=== PATIENT | female | born 1985 | race Caucasian/White ===

== ENCOUNTER 2019-02-07 14:10 | Inpatient (IN) | payer OTHER ==
[2019-02-07 19:06] VITALS: BMI 22.1
--- NOTE | 2019-02-07 20:37 | HP ---
"CIWA Score Nausea/Vomitin-Mild Nausea/No Vomiting Muscle Tremors: None Anxiety: 1-Mildly Anxious Agitation: 1-Slight > Activity Paroxysmal Sweats: No Perspiration Orientation: 0-Oriented Tacttile Disturbances: 0-None Auditory Disturbances: 0-None Visual Disturbances: 1-Very Mild Sensitivity Headache: 3-Moderate CIWA-Ar Total Score: 7 - Admission Criteria OASAS Guidelines: Admission for Medically Managed Detox: Requires at least one of the followin. CIWA greater than 12 2. Seizures within the past 24 hours 3. Delirium tremens within the past 24 hours 4. Hallucinations within the past 24 hours 5. Acute intervention needed for co occurring medical disorder 6. Acute intervention needed for co occurring psychiatric disorder 7. Severe withdrawal that cannot be handled at a lower level of care (continued vomiting, continued diarrhea, abnormal vital signs) requiring intravenous medication and/or fluids 8. Patient presents the following: CIWA greater than 12 Admission Criteria Met: Admission criteria met [facility] Chief Complaint: seeking detox for alcohol abuse with withdrawal sx's Allergies/Adverse Reactions: Allergies Allergy/AdvReac Type Severity Reaction Status Date / Time shrimp Allergy Severe throat Verified 02/07/19 18:52 swelling History of Present Illness: 33 Y.O. FEMALE WITH ALCOHOLISM O MAT HERE FOR DETOX. CLIENT IS REFERRED BY HER GUIDANCE COUNSELOR. THIS IS CLIENT FIRST ADMISSION HERE. REPORTS ALCOHOL INTAKE 3X A WEEK. LAST USE EARLIER TODAY. PRESENTS WITH C/O WITHDRAWAL SXS'S. CIWA 20. 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 LAST DETOX 2012. DENIES ANY SIGNNIFCANT PERIOD OF CLEAN TIME. SHE IS ON SBX MGMT 16 MG DAILY. LAST USE 3 DAYS AGO SHE HAS NOT FILLED HER LAST RX. SHE IS DISPENSED WEEKLY VERIFIED BY SUPERVISOR ESTERS AND EMULSIFIERS. SHE USED HEROIN AND STREET METH LAST 3 DAYS TO HELP WITH WITHDRAWAL SX'S. STATES WAS UNABLE TO FILL RX SHE WAS IN [place] . RETURNED FROM [place] ON THE WEEKEND BUT PHARMACY WAS CLOSED FOR THE WEEKEND. SHE ALSO USES COCAINE. DOMICILED, UNEMPLOYED- FAMILY SUPPORT, DENIES LEGALS. + HX/O DRUG OVERDOES, DENIES SEIZURE D/O, BLACK OUTS. Search Terms: jim dawson, 1985Search Date: 02/07/2019 08:27:21 PMStates Searched: [place] The Drug Utilization Report below displays the controlled substance prescriptions, if any, that were dispensed in the indicated state(s). The information displayed on this report is compiled from requests submitted to other states' PMPs, and accurately reflects the information as returned by them. Blank klein indicate data not provided by other state. This report was requested by: Simba Larkin | Reference #: [id number] Prescriptions Dispensed in [place] Others' Prescriptions Patient Name: JIM DAWSON Date: 1985 Address: [address] [place] [address] Sex: Female Rx Written Rx Dispensed Drug Strength Quantity Days Supply Prescriber Name 10/02/2017 10/02/2017 ZOLPIDEM TARTRATE 10 MG TABLET 30.0 30 Marilu FLORENTINO, OLGA 10/02/2017 11/10/2017 ZOLPIDEM TARTRATE 10 MG TABLET 30.0 30 Marilu FLORENTINO, OLGA 10/02/2017 10/31/2017 GABAPENTIN 300 MG CAPSULE 60.0 30 Marilu FLORENTINO JOSEPH Patient Name: JIM DAWSON Date: 1985 Address: [address] [place] [id number] Sex: Female Rx Written Rx Dispensed Drug Strength Quantity Days Supply Prescriber Name 11/27/2017 12/04/2017 GABAPENTIN 300 MG CAPSULE 30.0 30 Marilu FLORENTINO JOSEPH Patient Name: JIM DAWSON Date: 1985 Address: [address] [place] [id number] Sex: Female Rx Written Rx Dispensed Drug Strength Quantity Days Supply Prescriber Name 12/25/2017 12/25/2017 ZOLPIDEM TARTRATE 10 MG TABLET 30.0 30 Marilu FLORENTINO, OLGA 12/25/2017 01/16/2018 GABAPENTIN 300 MG CAPSULE 30.0 30 Marilu FLORENTINO JOSEPH Patient Name: STEVE DAWSON Date: 1985 Address: [address] [place], [place] [id number] Sex: Female Rx Written Rx Dispensed Drug Strength Quantity Days Supply Prescriber Name 01/29/2018 02/23/2018 ZOLPIDEM TARTRATE 10 MG TABLET 15.0 15 Marilu FLORENTINO, OLGA 01/29/2018 02/23/2018 GABAPENTIN 300 MG CAPSULE 15.0 15 Marilu FLORENTINO, OLGA 02/26/2018 03/07/2018 ZOLPIDEM TARTRATE 10 MG TABLET 30.0 30 Marilu FLORENTINO, OLGA 02/26/2018 03/07/2018 GABAPENTIN 300 MG CAPSULE 30.0 30 Marilu FLORENTINO, OLGA Patient Name: JIM DAWSON Date: 1985 Address: [address] [place] [address] Sex: Female Rx Written Rx Dispensed Drug Strength Quantity Days Supply Prescriber Name 05/26/2018 05/27/2018 GABAPENTIN 300 MG CAPSULE 30.0 30 Marilu FLORENTINO, OLGA 06/01/2018 06/01/2018 ZOLPIDEM TARTRATE 10 MG TABLET 30.0 30 Marilu FLORENTINO JOSEPH Patient Name: JIM DAWSON Date: 1985 Address: [address] [place] [address] Sex: Female Rx Written Rx Dispensed Drug Strength Quantity Days Supply Prescriber Name 10/01/2018 10/01/2018 ALPRAZOLAM 0.25 MG TABLET 14.0 7 WEBSTER, LATASHA 10/01/2018 10/01/2018 BUPRENORPHIN-NALOXON 8-2 MG SL 14.0 7 WEBSTER , LATASHA 10/07/2018 10/08/2018 BUPRENORPHIN-NALOXON 8-2 MG SL 14.0 7 WEBSTER , LATASHA 10/07/2018 10/08/2018 ALPRAZOLAM 0.25 MG TABLET 14.0 7 WEBSTER, LATASHA 10/15/2018 10/16/2018 BUPRENORPHIN-NALOXON 8-2 MG SL 14.0 7 WEBSTER , LATASHA 10/15/2018 10/16/2018 ALPRAZOLAM 1 MG TABLET 21.0 7 WEBSTER, LATASHA 10/22/2018 10/23/2018 BUPRENORPHIN-NALOXON 8-2 MG SL 14.0 7 WEBSTER , LATASHA 10/22/2018 10/23/2018 ALPRAZOLAM 1 MG TABLET 21.0 7 WEBSTER, LATASHA 11/12/2018 11/12/2018 ALPRAZOLAM 1 MG TABLET 21.0 7 WEBSTER, LATASHA 11/12/2018 11/12/2018 BUPRENORPHIN-NALOXON 8-2 MG SL 14.0 7 WEBSTER , ARAB 11/19/2018 11/19/2018 BUPRENORPHIN-NALOXON 8-2 MG SL 14.0 7 WEBSTER , ARAB 11/19/2018 11/19/2018 ALPRAZOLAM 1 MG TABLET 21.0 7 WEBSTER, ARAB 11/26/2018 11/26/2018 ALPRAZOLAM 1 MG TABLET 21.0 7 WEBSTER, ARAB 11/26/2018 11/26/2018 BUPRENORPHIN-NALOXON 8-2 MG SL 14.0 7 WEBSTER , ARAB 12/03/2018 12/03/2018 BUPRENORPHIN-NALOXON 8-2 MG SL 14.0 7 WEBSTER , ARAB 12/03/2018 12/03/2018 ALPRAZOLAM 1 MG TABLET 21.0 7 WEBSTER, ARAB 12/10/2018 12/10/2018 BUPRENORPHIN-NALOXON 8-2 MG SL 14.0 7 WEBSTER , ARAB 12/10/2018 12/10/2018 ALPRAZOLAM 1 MG TABLET 21.0 7 WEBSTER, ARAB 12/17/2018 12/17/2018 ALPRAZOLAM 1 MG TABLET 21.0 7 WEBSTER, ARAB 12/17/2018 12/17/2018 BUPRENORPHIN-NALOXON 8-2 MG SL 14.0 7 WEBSTER , ARAB 12/24/2018 12/28/2018 ALPRAZOLAM 1 MG TABLET 21.0 7 WEBSTER, ARAB 12/24/2018 12/28/2018 BUPRENORPHIN-NALOXON 8-2 MG SL 14.0 7 WEBSTER , ARAB 12/31/2018 01/04/2019 BUPRENORPHIN-NALOXON 8-2 MG SL 14.0 7 WEBSTER , ARAB 12/31/2018 01/04/2019 ALPRAZOLAM 1 MG TABLET 21.0 7 WEBSTER, ARAB 01/07/2019 01/11/2019 BUPRENORPHIN-NALOXON 8-2 MG SL 14.0 7 WEBSTER , ARAB 01/07/2019 01/11/2019 ALPRAZOLAM 1 MG TABLET 21.0 7 WEBSTER, ARAB 01/14/2019 01/17/2019 ALPRAZOLAM 1 MG TABLET 21.0 7 WEBSTER, ARAB 01/14/2019 01/17/2019 BUPRENORPHIN-NALOXON 8-2 MG SL 14.0 7 WEBSTER , ARAB 01/21/2019 01/24/2019 ALPRAZOLAM 1 MG TABLET 21.0 7 WEBSTER, LATASHA 01/21/2019 01/24/2019 BUPRENORPHIN-NALOXON 8-2 MG SL 14.0 7 WEBSTER , LATASHA 01/28/2019 01/30/2019 BUPRENORPHIN-NALOXON 8-2 MG SL 14.0 7 WEBSTER , LATASHA 01/28/2019 01/30/2019 ALPRAZOLAM 1 MG TABLET 21.[address] [facility], LATASHA Exam Limitations: No Limitations - Ebola screening Have you traveled outside of the country in the last 21 days: No (N) Have you had contact with anyone from an Ebola affected area: No Do you have a fever: No - Review of Systems Constitutional: Chills, Diaphoresis, Loss of Appetite, Malaise, Night Sweats, Changes in sleep EENT: reports: Dental Problems (MISSING TEETH), Throat Pain (SORE/ HORSENESS) Respiratory: reports: Shortness of Breath (HX/O ASTHMA) Cardiac: reports: No Symptoms Reported GI: reports: Nausea, Poor Appetite, Poor Fluid Intake, Vomiting : reports: No Symptoms Reported Musculoskeletal: reports: Neck Pain, Other (BUTTOCKS PAIN FROM PREVIOUS FALL. REPORTS WAS SEEN AND TREATED IN AN ER) Integumentary: reports: Sweating Neuro: reports: Headache, Tremors Endocrine: reports: No Symptoms Reported Hematology: reports: No Symptoms Reported Psychiatric: reports: Orientated x3, Agitated (IRRITABLE), Anxious, Depressed ( DENIES SI) Other Systems: Reviewed and Negative Patient History - Patient Medical History Hx Anemia: No Hx Asthma: Yes Hx Chronic Obstructive Pulmonary Disease (COPD): No Hx Cancer: No Hx Cardiac Disorders: No Hx Congestive Heart Failure: No Hx Hypertension: No Hx Hypercholesterolemia: No Hx Pacemaker: No HX Cerebrovascular Accident: No Hx Seizures: No Hx Dementia: No Hx Diabetes: No Hx Gastrointestinal Disorders: No Hx Liver Disease: No Hx Genitourinary Disorders: No Hx Sexually Transmitted Disorders: No Hx Renal Disease (ESRD): No Hx Thyroid Disease: No Hx Human Immunodeficiency Virus (HIV): No Hx Hepatitis C: No Hx Depression: Yes Hx Suicide Attempt: No Hx Bipolar Disorder: No Hx Schizophrenia: No Other Medical History: ANXIETY- ON RX ANAX, GABAPENTIN - Patient Surgical History Past Surgical History: Yes Hx Section: Yes (X3) Anesthesia Reaction: No - PPD History Previous Implant?: Yes Documented Results: Negative w/o proof Implanted On Prior R Admission?: No PPD to be Administered?: Yes - Reproductive History Patient is a Female of Child Bearing Age (11 -55 yrs old): Yes LMP comment: 01/31/2019 Patient : No (NEG UHCG) - Smoking Cessation Smoking history: Current every day smoker Have you smoked in the past 12 months: Yes Aproximately how many cigarettes per day: 3 Cigars Per Day: 0 Hx Chewing Tobacco Use: No Initiated information on smoking cessation: Yes 'Breaking Loose' booklet given: 02/07/19 - Substance & Tx. History Hx Alcohol Use: Yes Hx Substance Use: Yes Substance Use Type: Alcohol, Cocaine, Heroin, Prescribed (XANAX HAS NOT TAKEN IN 3 TO 4 DAYS) Hx Substance Use Treatment: Yes (DOES NOT RECALL) - Substances abused Alcohol Substance route: Oral Frequency: 3-6 times per week (3X) Amount used: 1 NIP Age of first use: 23 Date of last use: 02/07/19 Heroin Substance route: Inhalation Frequency: 1-3 times last 30 days (FIRST TIME USE ON 02/06/2019 IN THE PAST 3 WEEKS - 3 BAGS) Amount used: 3 bags Age of first use: 25 Date of last use: 02/06/19 Cocaine Substance route: Smoking Frequency: Daily Amount used: $150 Age of first use: 32 Date of last use: 02/06/19 Family Disease History - Family Disease History Family Disease History: Other: Mother (ALCOHOL ABUSE) Admission Physical Exam S - Vital Signs Vital Signs: Vital Signs - 24 hr 02/07/19 18:59 Temperature 97.0 F L Pulse Rate 68 Respiratory 18 Rate Blood Pressure 105/75 - Physical General Appearance: Yes: Irritable (DUIE TO WAITING TOO LONG), Anxious HEENTM: Yes: EOMI, Normocephalic, Normal Voice, ANG, Pharynx Normal, Muffled/ Hoarse Voice (HORSE), Other (MISSING TEETH THICK ORAL SECRETIONS) Respiratory: Yes: Chest Non-Tender, Lungs Clear, Normal Breath Sounds, No Respiratory Distress, No Accessory Muscle Use Neck: Yes: No masses,lesions,Nodules, Supple, Trachea in good position Breast: Yes: Breast Exam Deferred Cardiology: Yes: Regular Rhythm, Regular Rate, S1, S2 Abdominal: Yes: Non Tender, Soft, Increased Bowel Sounds Genitourinary: Yes: Within Normal Limits Back: Yes: Normal Inspection Musculoskeletal: Yes: full range of Motion, Gait Steady, Other (tenderness noted on palpation to left buttocks with some indurated tissue from previouos injury related to a fall. skin intaCT NO REDNESS.) Extremities: Yes: Normal Capillary Refill, Normal Range of Motion, Non-Tender Neurological: Yes: Fully Oriented, Alert, Motor Strength 5/5, Depressed Affect Integumentary: Yes: Dry, Warm Lymphatic: Yes: Within Normal Limits - Diagnostic (1) Alcohol abuse Current Visit: Yes Status: Acute (2) Opioid dependence on agonist therapy Current Visit: Yes Status: Acute (3) Cocaine abuse, uncomplicated Current Visit: Yes Status: Acute (4) At risk for dehydration due to poor fluid intake Current Visit: Yes Status: Acute (5) Depressed affect Current Visit: Yes Status: Acute (6) Asthma Current Visit: Yes Status: Acute (7) Nicotine dependence Current Visit: Yes Status: Acute (8) Substance induced mood disorder Current Visit: Yes Status: Acute Cleared for Admission [facility] - Detox or Rehab Detox Regimen/Protocol: Not Applicable Claeared for Rehab Admission: Yes Breathalyzer - Breathalyzer Breathalyzer: 0 Urine Drug Screen - Test Device Lot number: [id number] Expiration date: 11/19/20 - Control Is test valid?: Yes - Results Drug screen NEGATIVE: No Urine drug screen results: YAMIL-Cocaine, MOP-Opiates, MTD-Methadone, BUP-Suboxone Inpatient Rehab Admission - Rehab Decision to Admit Inpatient rehab admission?: Yes - Initial Determination Are CD services needed?: Yes Free of communicable disease: Yes Not in need of hospitalization: Yes - Rehab Admission Criteria Previous failed treatment: Yes Poor recovery environment: Yes Comorbidities: Yes Lacks judgement: No Patient is meeting Inpatient Rehab admission criteria:: Yes"
[2019-02-07] MEDS ORDERED: P-EPHED 60MG/TRIPROLIDI 2.5MG TABLET PO PRN (20:58)
[2019-02-07] MEDS ORDERED: MAGNESIUM CITRATE 300 ML BOTTLE PO PRN (20:58)
[2019-02-07] MEDS ORDERED: MENTHOL/PHENOL 1 EACH UD MM PRN (20:58)
[2019-02-07] MEDS ORDERED: MAGNESIUM HYDROX 2400MG/30ML ORAL SUSPENSION 30 ML CUP PO PRN (20:58)
[2019-02-07] MEDS ORDERED: LOPERAMIDE HCL 2 MG CAPSULE PO PRN (20:58)
[2019-02-07] MEDS ORDERED: guaiFENesin 200 MG/10 ML 10 ML UNIT-DOSE CUPS PO PRN (20:58)
[2019-02-07] MEDS: THIAMINE HCL 100 MG TABLET (FP) PO SCH (22:04)
[2019-02-07] MEDS: hydrOXYzine PAMOATE 50 MG CAPSULE (FP) PO PRN (22:04)
[2019-02-07] MEDS: MELATONIN 5 MG TABLETS PO PRN (22:04)
[2019-02-08] MEDS: IBUPROFEN 400 MG TABLET (FP) PO PRN ×2 (07:37→17:28)
[2019-02-08] MEDS: BUPRENORPHINE/NALOXONE 8 MG/2 MG FILM PACKET SL SCH ×2 (09:10→21:10)
[2019-02-08] MEDS: hydrOXYzine PAMOATE 50 MG CAPSULE (FP) PO PRN ×2 (09:10→14:19)
[2019-02-08] MEDS: PRENATAL VITAMINS W/ FOLIC ACID TABLET (FP) PO SCH (09:10)
[2019-02-08] MEDS: NICOTINE 14 MG/24 HOURS TOPICAL PATCH TD SCH (09:11)
--- NOTE | 2019-02-08 11:49 | CONSULT ---
[facility] Psychiatric Consult - Data Date of interview: 02/08/19 Admission source: [facility] Identifying data: Patient is a 33 year old single female, mother of two, unemployed, domiciled, and is financially supported by her boyfriend. This is patient's first admission to rehab at [facility]. Patient admitted 3E for cocaine dependence. Substance Abuse History: Smoking Cessation. Smoking history: Current every day smoker. Have you smoked in the past 12 months: Yes. Aproximately how many cigarettes per day: 3. Cigars Per Day: 0. Hx Chewing Tobacco Use: No. Initiated information on smoking cessation: Yes. 'Breaking Loose' booklet given : 02/07/19. - Substance & Tx. History. Hx Alcohol Use: Yes. Hx Substance Use : Yes. Substance Use Type: Alcohol, Cocaine, Heroin, Prescribed (XANAX HAS NOT TAKEN IN 3 TO 4 DAYS). Hx Substance Use Treatment: Yes (DOES NOT RECALL). - Substances abused. Alcohol. Substance route: Oral. Frequency: 3-6 times per week (3X). Amount used: 1 NIP. Age of first use: 23. Date of last use: . Heroin. Substance route: Inhalation. Frequency: 1-3 times last 30 days (FIRST TIME USE ON 02/06/2019 IN THE PAST 3 WEEKS - 3 BAGS). Amount used: 3 bags. Age of first use: 25. Date of last use: 02/06/19. Cocaine. Substance route: Smoking. Frequency: Daily. Amount used: $150. Age of first use: 32. Date of last use: 02/06/19 Medical History: Asthma Psychiatric History: Patient's first psychiatric contact was at 25 years of age at the [facility] methadone program located in [place]. States she was diagnosed with anxiety and prescribed klonopin. She discontinued treatment after three months. Then at 26 years of age she seeked psychiatric care at [facility] methadone program in [place] and was prescribed klonopin + gabapentin. Throughout the years she went back and fourth between [facility] and [facility] but is now receiving outpatient psychiatric care at [facility] and is prescribed gabapentin 300mg TID + Xanac 1mg TID + Suboxone. Patient denies h/o psychiatric hospitalization and suicide attempt. At present patient reports stable mood but is experiencing anxiety and difficulty sleeping. Physical/Sexual Abuse/Trauma History: denies. Mental Status Exam - Mental Status Exam Alert and Oriented to: Time, Place, Person Cognitive Function: Good Patient Appearance: Well Groomed Mood: Anxious Affect: Appropriate Patient Behavior: Cooperative Speech Pattern: Appropriate Voice Loudness: Normal Thought Process: Goal Oriented Thought Disorder: Not Present Hallucinations: Denies Suicidal Ideation: Denies Homicidal Ideation: Denies Insight/Judgement: Poor Sleep: Poorly Appetite: Fair Muscle strength/Tone: Normal Gait/Station: Normal Psychiatric Findings - Problem List ([place] 1, 2,3) (1) Alcohol dependence Current Visit: Yes Status: Chronic (2) Substance induced mood disorder Current Visit: Yes Status: Acute (3) Substance-induced anxiety disorder Current Visit: Yes Status: Acute (4) Substance-induced sleep disorder Current Visit: Yes Status: Acute (5) Opioid dependence Current Visit: Yes Status: Chronic - Initial Treatment Plan Initial Treatment Plan: Psychoeducation provided. Rehab in progress. Will order Gabapentin 300mg TID + Trazodone 50mg HS. Benefits and side effects discussed. Verbal consent given.
[2019-02-08 12:14] LABS: BASO % 0.5 % (0-2.0); EOS % 3.1 % (0-4.5); HEMATOCRIT 41.2 % (32.4-45.2); LYMPH % 24.5 % (8-40); MCH 27.3 pg (25.7-33.7); MCHC 33.9 g/dl (32.0-36.0); MEAN CELL VOLUME 80.3 fl (80-96); MEAN PLT VOLUME 9.9 fl (7.5-11.1); MONO % 5.7 % (3.8-10.2); NEUT % 66.2 % (42.8-82.8); PLATELET COUNT 221 K/MM3 (134-434); RBC 5.13 M/mm3 (3.60-5.2); RDW 15.2 % (11.6-15.6); WHITE BLOOD COUNT 5.6 K/mm3 (4.0-10.0)
[2019-02-08 12:22] LABS: ALBUMIN 3.9 g/dl (3.4-5.0); BILIRUBIN,TOTAL 0.8 mg/dL (0.2-1); CALCIUM 9.7 mg/dL (8.5-10.1); CREATININE 0.8 mg/dL (0.55-1.3); TOT PROT 7.3 g/dl (6.4-8.2)
[2019-02-08 12:34] LABS: PH,URINE 6.5 (5.0-8.0); URINE APPEARANCE CLEAR; URINE BILIRUBIN NEGATIVE (NEGATIVE); URINE COLOR YELLOW; URINE GLUCOSE (UA) NEGATIVE (NEGATIVE); URINE KETONE NEGATIVE (NEGATIVE); URINE LEUK ESTERASE NEGATIVE (NEGATIVE); URINE NITRITE NEGATIVE (NEGATIVE); URINE PROTEIN NEGATIVE (NEGATIVE)
[2019-02-08] MEDS ORDERED: ONDANSETRON *ODT* 4 MG TABLET SL PRN (13:29)
--- NOTE | 2019-02-08 13:36 | EKG ---
Test Reason : Blood Pressure : / mmHG Vent. Rate : 051 BPM Atrial Rate : 051 BPM P-R Int : 146 ms QRS Dur : 088 ms QT Int : 502 ms P-R-T Axes : -11 059 059 degrees QTc Int : 462 ms SINUS BRADYCARDIA OTHERWISE NORMAL ECG NO PREVIOUS ECGS AVAILABLE Confirmed by MD SARAH BETH, NANCY ([id number]) on 02/08/2019 1:36:25 PM Referred By: Leola Clinton Confirmed By:NANCY BURLESON MD
--- NOTE | 2019-02-08 14:04 | PN ---
[facility] Note: Pt c/o that she swallows her suboxone sl with water at home stating that she does not like the orange smell which causes her nausea. Spoke to Magi Roy, pharmacist and Dr. Oviedo on pt's concerns. No other form of suboxone is available to in hospital formulary. This typewriter tester explained to patient the proper administration protocols as well as the negative effects of doing that. Pt agreed to take suboxone as it is intended. Vital Signs - 24 hr 02/07/19 02/07/19 02/08/19 18:59 22:00 00:30 Temperature 97.0 F L 97.2 F L Pulse Rate 68 74 Respiratory 18 18 18 Rate Blood Pressure 105/75 134/70 02/08/19 02/08/19 03:30 06:41 Temperature 97.9 F Pulse Rate 82 Respiratory 18 16 Rate Blood Pressure 110/71 Laboratory Tests 02/07/19 02/08/19 02/08/19 20:16 09:00 09:00 WBC 5.6 RBC 5.13 Hgb 14.0 Hct 41.2 MCV 80.3 MCH 27.3 MCHC 33.9 RDW 15.2 Plt Count 221 MPV 9.9 Absolute Neuts (auto) 3.7 Neutrophils % 66.2 Lymphocytes % 24.5 Monocytes % 5.7 Eosinophils % 3.1 Basophils % 0.5 Nucleated RBC % 0 Sodium 143 Potassium 4.0 Chloride 108 H Carbon Dioxide 28 Anion Gap 7 L BUN 11.0 Creatinine 0.8 Est GFR (CKD-EPI)AfAm 113.86 Est GFR (CKD-EPI)NonAf 98.24 Random Glucose 59 L Calcium 9.7 Total Bilirubin 0.8 AST 16 ALT 16 Alkaline Phosphatase 106 Total Protein 7.3 Albumin 3.9 Urine Color Urine Appearance Urine pH Ur Specific [place] Urine Protein Urine Glucose (UA) Urine Ketones Urine Blood Urine Nitrite Urine Bilirubin Urine Urobilinogen Ur Leukocyte Esterase POC Urine HCG, Qual Negative RPR Titer 02/08/19 02/08/19 09:00 10:00 WBC RBC Hgb Hct MCV MCH MCHC RDW Plt Count MPV Absolute Neuts (auto) Neutrophils % Lymphocytes % Monocytes % Eosinophils % Basophils % Nucleated RBC % Sodium Potassium Chloride Carbon Dioxide Anion Gap BUN Creatinine Est GFR (CKD-EPI)AfAm Est GFR (CKD-EPI)NonAf Random Glucose Calcium Total Bilirubin AST ALT Alkaline Phosphatase Total Protein Albumin Urine Color Yellow Urine Appearance Clear Urine pH 6.5 Ur Specific [place] 1.018 Urine Protein Negative Urine Glucose (UA) Negative Urine Ketones Negative Urine Blood Negative Urine Nitrite Negative Urine Bilirubin Negative Urine Urobilinogen 1.0 Ur Leukocyte Esterase Negative POC Urine HCG, Qual RPR Titer Nonreactive Alert o x 3 NAD A/P suboxone MAT D/w pt as above and order zofran odt sl for nausea/vomiting prn. Patient agreed with poc to take suboxone sl and not swallow with water.
[2019-02-08] MEDS: GABAPENTIN 300 MG CAPSULE (FP) PO SCH ×2 (14:18→21:10)
[2019-02-08] MEDS: NICOTINE POLACRILEX 2 MG GUM BC PRN (16:42)
[2019-02-08] MEDS: traZODone HCL 50 MG TABLET (FP) PO SCH (21:10)
[2019-02-08] MEDS: THIAMINE HCL 100 MG TABLET (FP) PO SCH (21:10)
[2019-02-09] MEDS: GABAPENTIN 300 MG CAPSULE (FP) PO SCH ×3 (06:30→21:12)
[2019-02-09] MEDS: ALBUTEROL SO4 8 GM HFA INHALER IH PRN ×3 (06:31→21:14)
[2019-02-09] MEDS: IBUPROFEN 400 MG TABLET (FP) PO PRN ×2 (06:35→17:15)
[2019-02-09] MEDS: PRENATAL VITAMINS W/ FOLIC ACID TABLET (FP) PO SCH (09:46)
[2019-02-09] MEDS: NICOTINE 14 MG/24 HOURS TOPICAL PATCH TD SCH (09:46)
[2019-02-09] MEDS: BUPRENORPHINE/NALOXONE 8 MG/2 MG FILM PACKET SL SCH ×2 (09:47→21:13)
[2019-02-09] MEDS: NICOTINE POLACRILEX 2 MG GUM BC PRN (09:49)
[2019-02-09] MEDS: hydrOXYzine PAMOATE 50 MG CAPSULE (FP) PO PRN ×3 (12:41→21:12)
[2019-02-09] MEDS: THIAMINE HCL 100 MG TABLET (FP) PO SCH (21:12)
[2019-02-09] MEDS: traZODone HCL 50 MG TABLET (FP) PO SCH (21:12)
[2019-02-09] MEDS: MELATONIN 5 MG TABLETS PO PRN (21:13)
[2019-02-10] MEDS: hydrOXYzine PAMOATE 50 MG CAPSULE (FP) PO PRN ×4 (06:31→21:07)
[2019-02-10] MEDS: IBUPROFEN 400 MG TABLET (FP) PO PRN ×2 (06:31→13:36)
[2019-02-10] MEDS: ALBUTEROL SO4 8 GM HFA INHALER IH PRN ×2 (06:31→13:13)
[2019-02-10] MEDS: GABAPENTIN 300 MG CAPSULE (FP) PO SCH ×3 (06:31→21:07)
[2019-02-10] MEDS: NICOTINE 14 MG/24 HOURS TOPICAL PATCH TD SCH (10:02)
[2019-02-10] MEDS: BUPRENORPHINE/NALOXONE 8 MG/2 MG FILM PACKET SL SCH ×2 (10:02→21:08)
[2019-02-10] MEDS: PRENATAL VITAMINS W/ FOLIC ACID TABLET (FP) PO SCH (10:02)
[2019-02-10] MEDS: NICOTINE POLACRILEX 2 MG GUM BC PRN (10:06)
[2019-02-10] MEDS: METHYL SALICYLATE/MENTHOL OINT 30 GM TUBE TP SCH (10:48)
--- NOTE | 2019-02-10 11:42 | EKG ---
Test Reason : Blood Pressure : / mmHG Vent. Rate : 056 BPM Atrial Rate : 056 BPM P-R Int : 144 ms QRS Dur : 088 ms QT Int : 480 ms P-R-T Axes : -05 068 064 degrees QTc Int : 463 ms SINUS BRADYCARDIA WITH SINUS ARRHYTHMIA OTHERWISE NORMAL ECG WHEN COMPARED WITH ECG OF 07-FEB-2019 21:23, NO SIGNIFICANT CHANGE WAS FOUND Confirmed by SUNDEEP HARRINGTON, SHARON ([id number]) on 02/10/2019 11:42:32 AM Referred By: Leola Clinton Confirmed By:SHARON URBANO MD
[2019-02-10] MEDS: THIAMINE HCL 100 MG TABLET (FP) PO SCH (21:07)
[2019-02-10] MEDS: traZODone HCL 50 MG TABLET (FP) PO SCH (21:07)
[2019-02-10] MEDS: MELATONIN 5 MG TABLETS PO PRN (21:07)
[2019-02-11] MEDS: GABAPENTIN 300 MG CAPSULE (FP) PO SCH ×3 (06:25→21:36)
[2019-02-11] MEDS: IBUPROFEN 400 MG TABLET (FP) PO PRN ×3 (06:26→17:51)
[2019-02-11] MEDS: hydrOXYzine PAMOATE 50 MG CAPSULE (FP) PO PRN ×4 (06:27→22:06)
[2019-02-11] MEDS: ALBUTEROL SO4 8 GM HFA INHALER IH PRN (06:27)
[2019-02-11] MEDS ORDERED: PT OWN MED DRAWER 7, Y5N ONE (08:21)
[2019-02-11] MEDS: NICOTINE 14 MG/24 HOURS TOPICAL PATCH TD SCH (09:17)
[2019-02-11] MEDS: METHYL SALICYLATE/MENTHOL OINT 30 GM TUBE TP SCH (09:17)
[2019-02-11] MEDS: PRENATAL VITAMINS W/ FOLIC ACID TABLET (FP) PO SCH (09:17)
[2019-02-11] MEDS: BUPRENORPHINE/NALOXONE 8 MG/2 MG FILM PACKET SL SCH ×2 (09:20→21:34)
[2019-02-11] MEDS: NICOTINE POLACRILEX 2 MG GUM BC PRN (17:54)
[2019-02-11] MEDS: MELATONIN 5 MG TABLETS PO PRN (21:36)
[2019-02-11] MEDS: traZODone HCL 50 MG TABLET (FP) PO SCH (21:36)
[2019-02-11] MEDS: THIAMINE HCL 100 MG TABLET (FP) PO SCH (21:36)
[2019-02-12] MEDS: IBUPROFEN 400 MG TABLET (FP) PO PRN ×4 (00:13→18:44)
[2019-02-12] MEDS: GABAPENTIN 300 MG CAPSULE (FP) PO SCH ×3 (06:30→21:11)
[2019-02-12] MEDS: hydrOXYzine PAMOATE 50 MG CAPSULE (FP) PO PRN ×3 (06:30→21:14)
[2019-02-12] MEDS: NICOTINE 14 MG/24 HOURS TOPICAL PATCH TD SCH (09:30)
[2019-02-12] MEDS: METHYL SALICYLATE/MENTHOL OINT 30 GM TUBE TP SCH (09:30)
[2019-02-12] MEDS: PRENATAL VITAMINS W/ FOLIC ACID TABLET (FP) PO SCH (09:30)
[2019-02-12] MEDS: BUPRENORPHINE/NALOXONE 8 MG/2 MG FILM PACKET SL SCH ×2 (09:31→21:14)
[2019-02-12] MEDS: THIAMINE HCL 100 MG TABLET (FP) PO SCH (21:11)
[2019-02-12] MEDS: traZODone HCL 50 MG TABLET (FP) PO SCH (21:11)
[2019-02-12] MEDS: MELATONIN 5 MG TABLETS PO PRN (21:13)
[2019-02-13] MEDS: GABAPENTIN 300 MG CAPSULE (FP) PO SCH ×3 (06:46→21:30)
[2019-02-13] MEDS: hydrOXYzine PAMOATE 50 MG CAPSULE (FP) PO PRN ×3 (06:47→18:18)
[2019-02-13] MEDS: IBUPROFEN 400 MG TABLET (FP) PO PRN ×3 (06:47→21:32)
[2019-02-13] MEDS ORDERED: PT OWN MED DRAWER 7, Y5N ONE (08:42)
[2019-02-13] MEDS: PRENATAL VITAMINS W/ FOLIC ACID TABLET (FP) PO SCH (09:03)
[2019-02-13] MEDS: BUPRENORPHINE/NALOXONE 8 MG/2 MG FILM PACKET SL SCH ×2 (09:03→21:30)
[2019-02-13] MEDS: METHYL SALICYLATE/MENTHOL OINT 30 GM TUBE TP SCH (09:03)
[2019-02-13] MEDS: NICOTINE 14 MG/24 HOURS TOPICAL PATCH TD SCH (09:04)
[2019-02-13] MEDS: MAG HYDROX/AL HYDROX/SIMETH 30 ML UNIT-DOSE CUP PO PRN (11:46)
[2019-02-13] MEDS: NICOTINE POLACRILEX 2 MG GUM BC PRN (18:30)
[2019-02-13] MEDS: THIAMINE HCL 100 MG TABLET (FP) PO SCH (21:30)
[2019-02-13] MEDS: traZODone HCL 50 MG TABLET (FP) PO SCH (21:30)
[2019-02-13] MEDS: MELATONIN 5 MG TABLETS PO PRN (21:31)
[2019-02-14] MEDS: GABAPENTIN 300 MG CAPSULE (FP) PO SCH ×3 (06:44→21:49)
[2019-02-14] MEDS: hydrOXYzine PAMOATE 50 MG CAPSULE (FP) PO PRN ×3 (06:44→21:49)
[2019-02-14] MEDS: IBUPROFEN 400 MG TABLET (FP) PO PRN ×2 (06:44→17:11)
[2019-02-14] MEDS: NICOTINE 14 MG/24 HOURS TOPICAL PATCH TD SCH (10:09)
[2019-02-14] MEDS: PRENATAL VITAMINS W/ FOLIC ACID TABLET (FP) PO SCH (10:09)
[2019-02-14] MEDS: METHYL SALICYLATE/MENTHOL OINT 30 GM TUBE TP SCH (10:09)
[2019-02-14] MEDS: BUPRENORPHINE/NALOXONE 8 MG/2 MG FILM PACKET SL SCH ×2 (10:09→21:51)
[2019-02-14] MEDS: NICOTINE POLACRILEX 2 MG GUM BC PRN (10:09)
[2019-02-14] MEDS: THIAMINE HCL 100 MG TABLET (FP) PO SCH (21:49)
[2019-02-14] MEDS: traZODone HCL 50 MG TABLET (FP) PO SCH (21:49)
[2019-02-14] MEDS: MELATONIN 5 MG TABLETS PO PRN (21:52)
[2019-02-15] MEDS: GABAPENTIN 300 MG CAPSULE (FP) PO SCH ×3 (06:21→21:25)
[2019-02-15] MEDS: hydrOXYzine PAMOATE 50 MG CAPSULE (FP) PO PRN ×3 (06:23→21:24)
[2019-02-15] MEDS: IBUPROFEN 400 MG TABLET (FP) PO PRN ×2 (06:23→16:40)
[2019-02-15] MEDS ORDERED: PT OWN MED DRAWER 7, Y5N ONE (09:10)
[2019-02-15] MEDS: PRENATAL VITAMINS W/ FOLIC ACID TABLET (FP) PO SCH (09:57)
[2019-02-15] MEDS: BUPRENORPHINE/NALOXONE 8 MG/2 MG FILM PACKET SL SCH ×2 (09:58→21:24)
[2019-02-15] MEDS: NICOTINE 14 MG/24 HOURS TOPICAL PATCH TD SCH (09:58)
[2019-02-15] MEDS: METHYL SALICYLATE/MENTHOL OINT 30 GM TUBE TP SCH (09:59)
[2019-02-15] MEDS: COLLOIDAL OATMEAL 1 BAR EACH TP PRN (13:33)
--- NOTE | 2019-02-15 17:47 | PN ---
S Progress Note Note: Pt requested change of trazodone to seroquel for sleep. A consult was placed for on 02/11- pt was not seen. So will change to seroquel 100mg for sleep
[2019-02-15] MEDS: MAG HYDROX/AL HYDROX/SIMETH 30 ML UNIT-DOSE CUP PO PRN (21:25)
[2019-02-15] MEDS: THIAMINE HCL 100 MG TABLET (FP) PO SCH (21:25)
[2019-02-15] MEDS: MELATONIN 5 MG TABLETS PO PRN (21:25)
[2019-02-15] MEDS: QUEtiapine FUMARATE 100 MG TABLET (FP) PO SCH (21:27)
[2019-02-16] MEDS: hydrOXYzine PAMOATE 50 MG CAPSULE (FP) PO PRN ×3 (06:45→18:22)
[2019-02-16] MEDS: GABAPENTIN 300 MG CAPSULE (FP) PO SCH ×3 (06:45→21:18)
[2019-02-16] MEDS: IBUPROFEN 400 MG TABLET (FP) PO PRN ×2 (06:45→18:21)
[2019-02-16] MEDS: METHYL SALICYLATE/MENTHOL OINT 30 GM TUBE TP SCH (10:02)
[2019-02-16] MEDS: NICOTINE 14 MG/24 HOURS TOPICAL PATCH TD SCH (10:02)
[2019-02-16] MEDS: PRENATAL VITAMINS W/ FOLIC ACID TABLET (FP) PO SCH (10:02)
[2019-02-16] MEDS: BUPRENORPHINE/NALOXONE 8 MG/2 MG FILM PACKET SL SCH ×2 (10:03→21:18)
[2019-02-16] MEDS: MAG HYDROX/AL HYDROX/SIMETH 30 ML UNIT-DOSE CUP PO PRN (10:03)
[2019-02-16] MEDS: MELATONIN 5 MG TABLETS PO PRN (21:17)
[2019-02-16] MEDS: THIAMINE HCL 100 MG TABLET (FP) PO SCH (21:17)
[2019-02-16] MEDS: QUEtiapine FUMARATE 100 MG TABLET (FP) PO SCH (21:18)
[2019-02-17] MEDS: hydrOXYzine PAMOATE 50 MG CAPSULE (FP) PO PRN ×4 (06:13→23:18)
[2019-02-17] MEDS: GABAPENTIN 300 MG CAPSULE (FP) PO SCH ×3 (06:13→21:19)
[2019-02-17] MEDS: IBUPROFEN 400 MG TABLET (FP) PO PRN ×3 (06:13→21:19)
[2019-02-17] MEDS ORDERED: PT OWN MED DRAWER 7, Y5N ONE (08:23)
[2019-02-17] MEDS: NICOTINE 14 MG/24 HOURS TOPICAL PATCH TD SCH (09:49)
[2019-02-17] MEDS: BUPRENORPHINE/NALOXONE 8 MG/2 MG FILM PACKET SL SCH ×2 (09:49→21:19)
[2019-02-17] MEDS: PRENATAL VITAMINS W/ FOLIC ACID TABLET (FP) PO SCH (09:49)
[2019-02-17] MEDS: METHYL SALICYLATE/MENTHOL OINT 30 GM TUBE TP SCH (09:51)
[2019-02-17] MEDS: THIAMINE HCL 100 MG TABLET (FP) PO SCH (21:19)
[2019-02-17] MEDS: QUEtiapine FUMARATE 100 MG TABLET (FP) PO SCH (21:19)
[2019-02-17] MEDS: MELATONIN 5 MG TABLETS PO PRN (21:19)
[2019-02-18] MEDS: IBUPROFEN 400 MG TABLET (FP) PO PRN ×2 (05:46→11:58)
[2019-02-18] MEDS: GABAPENTIN 300 MG CAPSULE (FP) PO SCH ×3 (05:46→21:01)
[2019-02-18] MEDS: hydrOXYzine PAMOATE 50 MG CAPSULE (FP) PO PRN ×3 (05:46→17:31)
[2019-02-18] MEDS: NICOTINE 14 MG/24 HOURS TOPICAL PATCH TD SCH (09:10)
[2019-02-18] MEDS: METHYL SALICYLATE/MENTHOL OINT 30 GM TUBE TP SCH (09:10)
[2019-02-18] MEDS: PRENATAL VITAMINS W/ FOLIC ACID TABLET (FP) PO SCH (09:10)
[2019-02-18] MEDS: BUPRENORPHINE/NALOXONE 8 MG/2 MG FILM PACKET SL SCH ×2 (09:11→21:01)
[2019-02-18] MEDS: MAG HYDROX/AL HYDROX/SIMETH 30 ML UNIT-DOSE CUP PO PRN (12:23)
[2019-02-18] MEDS: THIAMINE HCL 100 MG TABLET (FP) PO SCH (21:01)
[2019-02-18] MEDS: QUEtiapine FUMARATE 100 MG TABLET (FP) PO SCH (21:01)
[2019-02-18] MEDS: MELATONIN 5 MG TABLETS PO PRN (21:02)
[2019-02-19] MEDS: hydrOXYzine PAMOATE 50 MG CAPSULE (FP) PO PRN ×3 (06:26→21:17)
[2019-02-19] MEDS: BUPRENORPHINE/NALOXONE 8 MG/2 MG FILM PACKET SL SCH ×2 (06:27→21:17)
[2019-02-19] MEDS: IBUPROFEN 400 MG TABLET (FP) PO PRN ×2 (06:27→12:51)
[2019-02-19] MEDS: GABAPENTIN 300 MG CAPSULE (FP) PO SCH ×3 (06:27→21:17)
[2019-02-19] MEDS: PRENATAL VITAMINS W/ FOLIC ACID TABLET (FP) PO SCH (09:59)
[2019-02-19] MEDS: NICOTINE 14 MG/24 HOURS TOPICAL PATCH TD SCH (09:59)
[2019-02-19] MEDS: METHYL SALICYLATE/MENTHOL OINT 30 GM TUBE TP SCH (10:00)
[2019-02-19] MEDS: MELATONIN 5 MG TABLETS PO PRN (21:17)
[2019-02-19] MEDS: QUEtiapine FUMARATE 100 MG TABLET (FP) PO SCH (21:17)
[2019-02-19] MEDS: THIAMINE HCL 100 MG TABLET (FP) PO SCH (21:17)
[2019-02-20] MEDS: IBUPROFEN 400 MG TABLET (FP) PO PRN ×3 (04:24→21:32)
[2019-02-20] MEDS: BUPRENORPHINE/NALOXONE 8 MG/2 MG FILM PACKET SL SCH ×2 (06:47→21:32)
[2019-02-20] MEDS: GABAPENTIN 300 MG CAPSULE (FP) PO SCH ×3 (06:47→21:32)
[2019-02-20] MEDS: hydrOXYzine PAMOATE 50 MG CAPSULE (FP) PO PRN ×3 (06:48→21:32)
[2019-02-20] MEDS: METHYL SALICYLATE/MENTHOL OINT 30 GM TUBE TP SCH (10:07)
[2019-02-20] MEDS: PRENATAL VITAMINS W/ FOLIC ACID TABLET (FP) PO SCH (10:07)
[2019-02-20] MEDS: NICOTINE 14 MG/24 HOURS TOPICAL PATCH TD SCH (10:07)
[2019-02-20] MEDS: ALBUTEROL SO4 8 GM HFA INHALER IH PRN (16:58)
[2019-02-20] MEDS: QUEtiapine FUMARATE 100 MG TABLET (FP) PO SCH (21:32)
[2019-02-20] MEDS: THIAMINE HCL 100 MG TABLET (FP) PO SCH (21:32)
[2019-02-20] MEDS: MELATONIN 5 MG TABLETS PO PRN (21:33)
[2019-02-21] MEDS: IBUPROFEN 400 MG TABLET (FP) PO PRN (06:32)
[2019-02-21] MEDS: GABAPENTIN 300 MG CAPSULE (FP) PO SCH ×3 (06:34→21:16)
[2019-02-21] MEDS: BUPRENORPHINE/NALOXONE 8 MG/2 MG FILM PACKET SL SCH ×2 (07:44→21:15)
[2019-02-21] MEDS: hydrOXYzine PAMOATE 50 MG CAPSULE (FP) PO PRN ×3 (07:44→21:16)
[2019-02-21] MEDS: COLLOIDAL OATMEAL 1 BAR EACH TP PRN (09:04)
[2019-02-21] MEDS: NICOTINE 14 MG/24 HOURS TOPICAL PATCH TD SCH (10:26)
[2019-02-21] MEDS: PRENATAL VITAMINS W/ FOLIC ACID TABLET (FP) PO SCH (10:26)
[2019-02-21] MEDS: METHYL SALICYLATE/MENTHOL OINT 30 GM TUBE TP SCH (10:27)
[2019-02-21] MEDS ORDERED: IBUPROFEN 400 MG TABLET (FP) PO PRN (10:28)
[2019-02-21] MEDS: IBUPROFEN 600 MG TABLET (FP) PO PRN ×2 (11:58→21:16)
[2019-02-21] MEDS: THIAMINE HCL 100 MG TABLET (FP) PO SCH (21:15)
[2019-02-21] MEDS: QUEtiapine FUMARATE 100 MG TABLET (FP) PO SCH (21:16)
[2019-02-21] MEDS: MELATONIN 5 MG TABLETS PO PRN (21:17)
[2019-02-22] MEDS: ACETAMINOPHEN 325 MG TABLET (FP) PO PRN (00:31)
[2019-02-22] MEDS: IBUPROFEN 600 MG TABLET (FP) PO PRN ×3 (06:25→17:40)
[2019-02-22] MEDS: hydrOXYzine PAMOATE 50 MG CAPSULE (FP) PO PRN ×2 (06:25→09:59)
[2019-02-22] MEDS: GABAPENTIN 300 MG CAPSULE (FP) PO SCH ×3 (06:26→21:07)
[2019-02-22] MEDS: BUPRENORPHINE/NALOXONE 8 MG/2 MG FILM PACKET SL SCH ×2 (07:52→21:07)
[2019-02-22] MEDS: NICOTINE 14 MG/24 HOURS TOPICAL PATCH TD SCH (09:58)
[2019-02-22] MEDS ORDERED: PT OWN MED DRAWER 7, Y5N ONE (10:00)
[2019-02-22] MEDS: METHYL SALICYLATE/MENTHOL OINT 30 GM TUBE TP SCH (10:00)
[2019-02-22] MEDS: PRENATAL VITAMINS W/ FOLIC ACID TABLET (FP) PO SCH (10:01)
[2019-02-22] MEDS: diphenhydrAMINE HCL 25 MG CAPSULE (FP) PO PRN ×2 (13:43→21:08)
[2019-02-22] MEDS: QUEtiapine FUMARATE 100 MG TABLET (FP) PO SCH (21:07)
[2019-02-22] MEDS: MELATONIN 5 MG TABLETS PO PRN (21:07)
[2019-02-22] MEDS: THIAMINE HCL 100 MG TABLET (FP) PO SCH (21:07)
[2019-02-23] MEDS: IBUPROFEN 600 MG TABLET (FP) PO PRN ×3 (03:27→21:09)
[2019-02-23] MEDS: GABAPENTIN 300 MG CAPSULE (FP) PO SCH ×3 (06:30→21:08)
[2019-02-23] MEDS: diphenhydrAMINE HCL 25 MG CAPSULE (FP) PO PRN ×3 (06:31→21:08)
[2019-02-23] MEDS: BUPRENORPHINE/NALOXONE 8 MG/2 MG FILM PACKET SL SCH ×2 (07:52→21:08)
[2019-02-23] MEDS ORDERED: PT OWN MED DRAWER 7, Y5N ONE (08:46)
[2019-02-23] MEDS: NICOTINE 14 MG/24 HOURS TOPICAL PATCH TD SCH (10:16)
[2019-02-23] MEDS: PRENATAL VITAMINS W/ FOLIC ACID TABLET (FP) PO SCH (10:16)
[2019-02-23] MEDS: METHYL SALICYLATE/MENTHOL OINT 30 GM TUBE TP SCH (10:17)
[2019-02-23] MEDS: ACETAMINOPHEN 325 MG TABLET (FP) PO PRN (11:32)
[2019-02-23] MEDS: MELATONIN 5 MG TABLETS PO PRN (21:07)
[2019-02-23] MEDS: THIAMINE HCL 100 MG TABLET (FP) PO SCH (21:07)
[2019-02-23] MEDS: QUEtiapine FUMARATE 100 MG TABLET (FP) PO SCH (21:08)
[2019-02-24] MEDS: GABAPENTIN 300 MG CAPSULE (FP) PO SCH (06:04)
[2019-02-24] MEDS: BUPRENORPHINE/NALOXONE 8 MG/2 MG FILM PACKET SL SCH ×2 (06:04→21:29)
[2019-02-24] MEDS: IBUPROFEN 600 MG TABLET (FP) PO PRN ×3 (06:05→21:27)
[2019-02-24] MEDS: diphenhydrAMINE HCL 25 MG CAPSULE (FP) PO PRN ×3 (06:06→21:27)
[2019-02-24] MEDS: PRENATAL VITAMINS W/ FOLIC ACID TABLET (FP) PO SCH (10:07)
[2019-02-24] MEDS: METHYL SALICYLATE/MENTHOL OINT 30 GM TUBE TP SCH (10:07)
[2019-02-24] MEDS: NICOTINE 14 MG/24 HOURS TOPICAL PATCH TD SCH (10:07)
[2019-02-24] MEDS: ACETAMINOPHEN 325 MG TABLET (FP) PO PRN (10:08)
[2019-02-24] MEDS: ALBUTEROL SO4 8 GM HFA INHALER IH PRN (13:00)
--- NOTE | 2019-02-24 13:08 | PN ---
Psychiatric Progress Note Vital Signs: Vital Signs Period Temp Pulse Resp BP Sys/Steve Pulse Ox Last 24 Hr 98.0 F 66 16-18 104/61 Date of Session: 02/24/19 Chief Complaint:: " I have anxiety." HPI: Patient admitted to for cocaine dependence. Patient reports worsening anxiety. ROS: Patient presents as mildly anxious. Patient is cooperative, coherent, alert + oriented X3. Current Medications: Active Medications Generic Name Dose Route Start Last Admin Trade Name Freq PRN Reason Stop Dose Admin Acetaminophen 650 mg 02/07/19 20:58 02/24/19 10:08 Tylenol - PO 650 mg Q4H PRN Administration FEVER Al Hydroxide/Mg Hydroxide 30 ml 02/07/19 20:58 02/18/19 12:23 Mylanta Oral Suspension - PO 30 ml Q6H PRN Administration DYSPEPSIA Albuterol Sulfate 2 puff 02/08/19 06:23 02/20/19 16:58 Ventolin Hfa Inhaler - IH 2 puff Q4H PRN Administration SHORT OF BREATH/WHEEZING Buprenorphine/Naloxone 1 each 02/18/19 22:00 02/24/19 06:04 Suboxone 8 Mg/2mg Sl Film - SL 1 each BID@0700,2200 SUNNY Administration Colloidal Oatmeal 1 applic 02/15/19 11:29 02/21/19 09:04 Aveeno Soap - TP 1 bar DAILY PRN Administration HYGEINE Diphenhydramine HCl 25 mg 02/22/19 13:31 02/24/19 06:06 Benadryl - PO 25 mg Q6H PRN Administration ANXIETY Eucalyptus/Menthol/Phenol/Sorbitol 1 each 02/07/19 20:58 Cepastat Lozenge - MM Q4H PRN SORE THROAT Gabapentin 400 mg 02/24/19 14:00 Neurontin - PO TID SUNNY Guaifenesin 10 ml 02/07/19 20:58 Robitussin - PO Q6H PRN COUGH Ibuprofen 600 mg 02/21/19 10:27 02/24/19 06:05 Motrin - PO 600 mg Q4H PRN Administration FEVER Loperamide HCl 4 mg 02/07/19 20:58 02/07/19 22:04 Imodium - PO 4 mg Q6H PRN Administration DIARRHEA Magnesium Citrate 300 ml 02/07/19 20:58 Citroma - PO Q48H PRN CONSTIPATION Magnesium Hydroxide 30 ml 02/07/19 20:58 Milk Of Magnesia - PO DAILY PRN CONSTIPATION Melatonin 10 mg 02/10/19 22:00 02/23/19 21:07 Melatonin PO 10 mg HS PRN Administration INSOMNIA Methyl Salicylate 1 applic 02/10/19 10:00 02/24/19 10:07 Pedro-Hassan - TP Not Given DAILY SUNNY Nicotine 14 mg 02/08/19 10:00 02/24/19 10:07 Nicoderm Patch - TD 14 mg DAILY SUNNY Administration Nicotine Polacrilex 2 mg 02/07/19 20:58 02/14/19 10:09 Nicorette Gum - BC 2 mg Q2H PRN Administration NICOTINE REPLACEMENT RX Ondansetron HCl 8 mg 02/08/19 13:29 Zofran Odt - SL Q8H PRN NAUSEA AND/OR VOMITING Multivit/Folic Acid/Iron 1 tab 02/08/19 10:00 02/24/19 10:07 Vitamins (Sjr) - PO 1 tab DAILY SUNNY Administration Pseudoephedrine/Triprolidine 1 combo 02/07/19 20:58 Actifed - PO TID PRN NASAL CONGESTION Quetiapine Fumarate 100 mg 02/15/19 22:00 02/23/19 21:08 Seroquel - PO 100 mg HS SUNNY Administration Thiamine HCl 100 mg 02/07/19 22:00 02/23/19 21:07 Vitamin B1 - PO 100 mg HS SUNNY Administration Medication(s) Change(s): Yes. Current Side Effect: No Lab tests ordered: No Lab tests reviewed: Yes Provider note:: Patient reports worsening anxiety secondary to her discharge on 03/03/19. States her mind is all over the place as she is unsure of her discharge plan. Patient advised to speak to her counselor concerning her discharge. Patient also educated on the importance of utilizing her coping skills to help manage her anxiety. Will d/c gabapentin 300mg TID and will order gabapentin 400mg TID. Patient satisifed and receptive to feeback. Benefits and side effects discussed. Verbal consent given. Total face to face time:: 25 Mental Status Exam - Mental Status Exam Alert and Oriented to: Time, Place, Person Cognitive Function: Good Patient Appearance: Well Groomed Mood: Anxious Affect: Mood Congruent Patient Behavior: Cooperative Speech Pattern: Appropriate Voice Loudness: Normal Thought Process: Goal Oriented Thought Disorder: Not Present Hallucinations: Denies Suicidal Ideation: Denies Homicidal Ideation: Denies Insight/Judgement: Poor Sleep: Fair Appetite: Fair Muscle strength/Tone: Normal Gait/Station: Normal Psychiatric Treatment Plan - Problem List (1) Alcohol dependence Current Visit: Yes (2) Substance induced mood disorder Current Visit: Yes (3) Substance-induced anxiety disorder Current Visit: Yes (4) Substance-induced sleep disorder Current Visit: Yes (5) Opioid dependence Current Visit: Yes
[2019-02-24] MEDS: GABAPENTIN 400 MG CAPSULE (FP) PO SCH ×2 (14:01→21:27)
[2019-02-24] MEDS: THIAMINE HCL 100 MG TABLET (FP) PO SCH (21:27)
[2019-02-24] MEDS: QUEtiapine FUMARATE 100 MG TABLET (FP) PO SCH (21:27)
[2019-02-24] MEDS: MELATONIN 5 MG TABLETS PO PRN (21:27)
[2019-02-25] MEDS: diphenhydrAMINE HCL 25 MG CAPSULE (FP) PO PRN ×2 (05:59→16:21)
[2019-02-25] MEDS: GABAPENTIN 400 MG CAPSULE (FP) PO SCH ×3 (05:59→21:31)
[2019-02-25] MEDS: IBUPROFEN 600 MG TABLET (FP) PO PRN ×4 (06:00→21:33)
[2019-02-25] MEDS: BUPRENORPHINE/NALOXONE 8 MG/2 MG FILM PACKET SL SCH ×2 (06:04→21:34)
[2019-02-25] MEDS: ACETAMINOPHEN 325 MG TABLET (FP) PO PRN (08:42)
[2019-02-25] MEDS ORDERED: PT OWN MED DRAWER 7, Y5N ONE (08:44)
[2019-02-25] MEDS: PRENATAL VITAMINS W/ FOLIC ACID TABLET (FP) PO SCH (10:18)
[2019-02-25] MEDS: METHYL SALICYLATE/MENTHOL OINT 30 GM TUBE TP SCH (10:18)
[2019-02-25] MEDS: NICOTINE 14 MG/24 HOURS TOPICAL PATCH TD SCH (10:18)
[2019-02-25] MEDS: BENZOCAINE 20 % GEL TUBE MM PRN (16:22)
[2019-02-25] MEDS: QUEtiapine FUMARATE 100 MG TABLET (FP) PO SCH (21:31)
[2019-02-25] MEDS: MELATONIN 5 MG TABLETS PO PRN (21:31)
[2019-02-25] MEDS: THIAMINE HCL 100 MG TABLET (FP) PO SCH (21:32)
[2019-02-26] MEDS: IBUPROFEN 600 MG TABLET (FP) PO PRN ×4 (06:27→21:34)
[2019-02-26] MEDS: BUPRENORPHINE/NALOXONE 8 MG/2 MG FILM PACKET SL SCH ×2 (06:28→21:36)
[2019-02-26] MEDS: GABAPENTIN 400 MG CAPSULE (FP) PO SCH ×3 (06:28→21:34)
[2019-02-26] MEDS: PRENATAL VITAMINS W/ FOLIC ACID TABLET (FP) PO SCH (10:40)
[2019-02-26] MEDS: diphenhydrAMINE HCL 25 MG CAPSULE (FP) PO PRN ×3 (10:41→23:29)
[2019-02-26] MEDS: NICOTINE 14 MG/24 HOURS TOPICAL PATCH TD SCH (10:42)
[2019-02-26] MEDS: METHYL SALICYLATE/MENTHOL OINT 30 GM TUBE TP SCH (10:42)
[2019-02-26] MEDS: QUEtiapine FUMARATE 100 MG TABLET (FP) PO SCH (21:34)
[2019-02-26] MEDS: MELATONIN 5 MG TABLETS PO PRN (21:34)
[2019-02-26] MEDS: THIAMINE HCL 100 MG TABLET (FP) PO SCH (21:34)
[2019-02-26] MEDS ORDERED: ACETAMINOPHEN 325 MG TABLET (FP) ONE (22:13)
[2019-02-27] MEDS: IBUPROFEN 600 MG TABLET (FP) PO PRN ×4 (04:01→21:20)
[2019-02-27] MEDS: ACETAMINOPHEN 325 MG TABLET (FP) PO PRN (05:47)
[2019-02-27] MEDS: GABAPENTIN 400 MG CAPSULE (FP) PO SCH ×3 (05:47→21:19)
[2019-02-27] MEDS: BUPRENORPHINE/NALOXONE 8 MG/2 MG FILM PACKET SL SCH ×2 (06:14→21:21)
[2019-02-27] MEDS: diphenhydrAMINE HCL 25 MG CAPSULE (FP) PO PRN ×3 (06:15→21:19)
[2019-02-27] MEDS ORDERED: PT OWN MED DRAWER 7, Y5N ONE ×2 (08:35→09:43)
[2019-02-27] MEDS: PRENATAL VITAMINS W/ FOLIC ACID TABLET (FP) PO SCH (09:44)
[2019-02-27] MEDS: NICOTINE 14 MG/24 HOURS TOPICAL PATCH TD SCH (09:44)
[2019-02-27] MEDS: BENZOCAINE 20 % GEL TUBE MM PRN (09:44)
[2019-02-27] MEDS: METHYL SALICYLATE/MENTHOL OINT 30 GM TUBE TP SCH (09:44)
[2019-02-27] MEDS: MAG HYDROX/AL HYDROX/SIMETH 30 ML UNIT-DOSE CUP PO PRN (09:45)
[2019-02-27] MEDS: QUEtiapine FUMARATE 100 MG TABLET (FP) PO SCH (21:19)
[2019-02-27] MEDS: MELATONIN 5 MG TABLETS PO PRN (21:19)
[2019-02-27] MEDS: THIAMINE HCL 100 MG TABLET (FP) PO SCH (21:41)
[2019-02-28] MEDS: IBUPROFEN 600 MG TABLET (FP) PO PRN ×2 (06:39→10:55)
[2019-02-28] MEDS: diphenhydrAMINE HCL 25 MG CAPSULE (FP) PO PRN ×3 (06:40→21:34)
[2019-02-28] MEDS: GABAPENTIN 400 MG CAPSULE (FP) PO SCH ×3 (06:40→21:34)
[2019-02-28] MEDS: BUPRENORPHINE/NALOXONE 8 MG/2 MG FILM PACKET SL SCH ×3 (06:43→21:36)
[2019-02-28] MEDS: PRENATAL VITAMINS W/ FOLIC ACID TABLET (FP) PO SCH (10:19)
[2019-02-28] MEDS: BENZOCAINE 20 % GEL TUBE MM PRN (10:19)
[2019-02-28] MEDS: METHYL SALICYLATE/MENTHOL OINT 30 GM TUBE TP SCH (10:19)
[2019-02-28] MEDS: NICOTINE 14 MG/24 HOURS TOPICAL PATCH TD SCH (10:20)
--- NOTE | 2019-02-28 14:15 | PN ---
[facility] Progress Note Note: Patient has toothache. States oragel helps very little. A/P oral mucosa pink and moist, + tooth decay and missing teeth, no inflammation or lesions noted. Will continue oragel and increase Motrin to 800mg every 8 hrs prn monitor clinically
[2019-02-28] MEDS: MAG HYDROX/AL HYDROX/SIMETH 30 ML UNIT-DOSE CUP PO PRN (15:05)
[2019-02-28] MEDS: IBUPROFEN 400 MG TABLET (FP) PO PRN (17:08)
[2019-02-28] MEDS: MELATONIN 5 MG TABLETS PO PRN (21:34)
[2019-02-28] MEDS: THIAMINE HCL 100 MG TABLET (FP) PO SCH (21:34)
[2019-02-28] MEDS: QUEtiapine FUMARATE 100 MG TABLET (FP) PO SCH (21:34)
[2019-03-01] MEDS: GABAPENTIN 400 MG CAPSULE (FP) PO SCH ×3 (06:52→21:24)
[2019-03-01] MEDS: IBUPROFEN 400 MG TABLET (FP) PO PRN ×3 (06:52→21:25)
[2019-03-01] MEDS: diphenhydrAMINE HCL 25 MG CAPSULE (FP) PO PRN ×3 (06:54→21:26)
[2019-03-01] MEDS: NICOTINE 14 MG/24 HOURS TOPICAL PATCH TD SCH (10:02)
[2019-03-01] MEDS: PRENATAL VITAMINS W/ FOLIC ACID TABLET (FP) PO SCH (10:02)
[2019-03-01] MEDS: BUPRENORPHINE/NALOXONE 8 MG/2 MG FILM PACKET SL SCH ×2 (10:02→21:28)
[2019-03-01] MEDS: METHYL SALICYLATE/MENTHOL OINT 30 GM TUBE TP SCH (10:04)
[2019-03-01] MEDS: ACETAMINOPHEN 325 MG TABLET (FP) PO PRN (10:25)
--- NOTE | 2019-03-01 13:16 | PN ---
[facility] Progress Note (SOAP) Subjective: c/o tooth ache with swelling and not getting better. Objective: 03/01/19 13:13 Vital Signs - 24 hr 03/01/19 03/01/19 03/01/19 00:30 03:30 07:20 Temperature 97.8 F Pulse Rate 83 Respiratory 17 18 18 Rate Blood Pressure 94/56 L oral exam: Left lower jaw with pain on palpation and swelling. left premolar decay; gum redness and swelling. Assessment: 03/01/19 13:14 Toothache Tooth decay/swelling Plan: Amoxicillin 500 mg po tid x7 days Anbesol oral gel apply as directed
[2019-03-01] MEDS: AMOXICILLIN 500 MG CAPSULE (FP) PO SCH ×2 (14:14→21:24)
[2019-03-01] MEDS: MELATONIN 5 MG TABLETS PO PRN (21:25)
[2019-03-01] MEDS: THIAMINE HCL 100 MG TABLET (FP) PO SCH (21:25)
[2019-03-01] MEDS: QUEtiapine FUMARATE 100 MG TABLET (FP) PO SCH (21:25)
[2019-03-02] MEDS: AMOXICILLIN 500 MG CAPSULE (FP) PO SCH ×3 (06:24→21:24)
[2019-03-02] MEDS: GABAPENTIN 400 MG CAPSULE (FP) PO SCH ×3 (06:24→21:24)
[2019-03-02] MEDS: IBUPROFEN 400 MG TABLET (FP) PO PRN ×3 (06:24→23:21)
[2019-03-02] MEDS: diphenhydrAMINE HCL 25 MG CAPSULE (FP) PO PRN ×3 (06:25→21:24)
[2019-03-02] MEDS: PRENATAL VITAMINS W/ FOLIC ACID TABLET (FP) PO SCH (10:16)
[2019-03-02] MEDS: ACETAMINOPHEN 325 MG TABLET (FP) PO PRN ×2 (10:16→21:25)
[2019-03-02] MEDS: NICOTINE 14 MG/24 HOURS TOPICAL PATCH TD SCH (10:17)
[2019-03-02] MEDS: BUPRENORPHINE/NALOXONE 8 MG/2 MG FILM PACKET SL SCH ×2 (10:18→21:29)
[2019-03-02] MEDS: METHYL SALICYLATE/MENTHOL OINT 30 GM TUBE TP SCH (10:18)
--- NOTE | 2019-03-02 10:19 | DS ---
[facility] Detox Discharge Summary Admission Date: 02/07/19 Discharge Date: 03/02/19 - Physical Exam Results Vital Signs: Vital Signs Temperature 97.7 F 03/02/19 07:15 Pulse Rate 83 03/02/19 07:15 Respiratory Rate 18 03/02/19 07:15 Blood Pressure 92/56 L 03/02/19 07:15 O2 Sat by Pulse Oximetry (%) - Treatment Hospital Course: Detox Protocol Followed - Medication Discharge Medications: Ambulatory Orders Albuterol Sulfate Inhaler - [Ventolin HFA Inhaler -] 2 puff PO Q4H 02/07/19 Alprazolam [Xanax] 1 mg PO TID 02/07/19 Gabapentin 300 mg PO TID 02/07/19 Suboxone 8 mg-2 mg Sl Tablets 8 mg PO BID 02/07/19 hydrOXYzine PAMOATE [Vistaril -] 25 mg PO HS 02/07/19 - AMA Did Patient Leave Against Medical Advice: No
--- NOTE | 2019-03-02 10:30 | DS ---
[facility] Rehab Discharge Summary - [facility] Rehab Discharge Summary Admission Date: 02/07/19 Discharge Date: 03/03/19 - History Present History: Alcohol dependence, Cocaine dependence, Opioid dependence, Sedative dependence Additional Comments: Pt is a 33 y/o female admitted to rehab with a hx of alcohol,cocaine,benzo and heroin dependence. Pt is currently on Suboxone MAT and has been referred to aftercare for follow up treatment. Pt has been reminded to follow up with dentist for management of chronic poor state of dental hygiene/health. Pertinent Past History: Asthma mood disorder - Discharge Physical Exam Vital Signs: Vital Signs Temperature 97.7 F 03/02/19 07:15 Pulse Rate 83 03/02/19 07:15 Respiratory Rate 18 03/02/19 07:15 Blood Pressure 92/56 L 03/02/19 07:15 O2 Sat by Pulse Oximetry (%) Alert o x 3 Nad Ambulates with steady gait Heent:normocephalic,eomi,rai,loss of teeth upper/lower jaws;decayed incissors/ pre-molar Cardiac:s1 s2, rrr Lungs:cta,jordan. Extremities/Skin:No edema,cyanosis;skin intact Pertinent Admission Physical Exam Findings: 1)Poor Dental Health 2)unremarkable lab results Laboratory Tests 02/07/19 02/08/19 02/08/19 20:16 08:46 08:46 WBC RBC Hgb Hct MCV MCH MCHC RDW Plt Count MPV Absolute Neuts (auto) Neutrophils % Lymphocytes % Monocytes % Eosinophils % Basophils % Nucleated RBC % Sodium Potassium Chloride Carbon Dioxide Anion Gap BUN Creatinine Est GFR (CKD-EPI)AfAm Est GFR (CKD-EPI)NonAf Random Glucose Calcium Total Bilirubin AST ALT Alkaline Phosphatase Total Protein Albumin Urine Color Urine Appearance Urine pH Ur Specific Gobler Urine Protein Urine Glucose (UA) Urine Ketones Urine Blood Urine Nitrite Urine Bilirubin Urine Urobilinogen Ur Leukocyte Esterase POC Urine HCG, Qual Negative RPR Titer Hep C Ab Diagnostic 0.2 TB (QFT) Incubation TB Test (QFT) Nil 0.05 TB Test (QFT) Mitogen >10.00 TB Test (QFT) Antigen 0.05 TB Test (QFT) Negative TB Positive Criteria 02/08/19 02/08/19 02/08/19 09:00 09:00 09:00 WBC 5.6 RBC 5.13 Hgb 14.0 Hct 41.2 MCV 80.3 MCH 27.3 MCHC 33.9 RDW 15.2 Plt Count 221 MPV 9.9 Absolute Neuts (auto) 3.7 Neutrophils % 66.2 Lymphocytes % 24.5 Monocytes % 5.7 Eosinophils % 3.1 Basophils % 0.5 Nucleated RBC % 0 Sodium 143 Potassium 4.0 Chloride 108 H Carbon Dioxide 28 Anion Gap 7 L BUN 11.0 Creatinine 0.8 Est GFR (CKD-EPI)AfAm 113.86 Est GFR (CKD-EPI)NonAf 98.24 Random Glucose 59 L Calcium 9.7 Total Bilirubin 0.8 AST 16 ALT 16 Alkaline Phosphatase 106 Total Protein 7.3 Albumin 3.9 Urine Color Urine Appearance Urine pH Ur Specific Gobler Urine Protein Urine Glucose (UA) Urine Ketones Urine Blood Urine Nitrite Urine Bilirubin Urine Urobilinogen Ur Leukocyte Esterase POC Urine HCG, Qual RPR Titer Nonreactive Hep C Ab Diagnostic TB (QFT) Incubation TB Test (QFT) Nil TB Test (QFT) Mitogen TB Test (QFT) Antigen TB Test (QFT) TB Positive Criteria 02/08/19 10:00 WBC RBC Hgb Hct MCV MCH MCHC RDW Plt Count MPV Absolute Neuts (auto) Neutrophils % Lymphocytes % Monocytes % Eosinophils % Basophils % Nucleated RBC % Sodium Potassium Chloride Carbon Dioxide Anion Gap BUN Creatinine Est GFR (CKD-EPI)AfAm Est GFR (CKD-EPI)NonAf Random Glucose Calcium Total Bilirubin AST ALT Alkaline Phosphatase Total Protein Albumin Urine Color Yellow Urine Appearance Clear Urine pH 6.5 Ur Specific Gobler 1.018 Urine Protein Negative Urine Glucose (UA) Negative Urine Ketones Negative Urine Blood Negative Urine Nitrite Negative Urine Bilirubin Negative Urine Urobilinogen 1.0 Ur Leukocyte Esterase Negative POC Urine HCG, Qual RPR Titer Hep C Ab Diagnostic TB (QFT) Incubation TB Test (QFT) Nil TB Test (QFT) Mitogen TB Test (QFT) Antigen TB Test (QFT) TB Positive Criteria - Treatment Discharge Condition: Discharge condition good Hospital Course: Rehabilitated safely and responded well. Accepted aftercare referral. - Medication Discharge Medications: Ambulatory Orders Albuterol Sulfate Inhaler - [Ventolin HFA Inhaler -] 2 puff PO Q4H 02/07/19 Alprazolam [Xanax] 1 mg PO TID 02/07/19 Gabapentin 300 mg PO TID 02/07/19 Suboxone 8 mg-2 mg Sl Tablets 8 mg PO BID 02/07/19 hydrOXYzine PAMOATE [Vistaril -] 25 mg PO HS 02/07/19 Amoxicillin - [Amoxicillin 500mg Capsule -] 500 mg PO TID #15 capsule 03/02/19 Gabapentin [Neurontin -] 400 mg PO TID #90 capsule 03/02/19 - Medication-Assisted Treatment (MAT) Medication-Assisted Treatment (MAT): Yes Medication Prescribed: Suboxone MAT Follow-up Referral: [facility] [address] [place] [id number] - Discharge Instructions Diet, activity, other medical instructions: Diet:Regular Activity: oob, ad prasanna Other medical instructions:[facility] [place], [place] follow up with [facility] aftercare @ [place], [place]. - Diagnosis (1) Asthma Status: Chronic Qualifiers: Asthma severity: mild Asthma persistence: unspecified Asthma complication type: unspecified Qualified Code(s): J45.909 - Unspecified asthma , uncomplicated (2) Cocaine abuse, uncomplicated Status: Chronic (3) Nicotine dependence Status: Chronic Qualifiers: Nicotine product type: cigarettes Substance use status: uncomplicated Qualified Code(s): F17.210 - Nicotine dependence, cigarettes, uncomplicated (4) Opioid dependence on agonist therapy Status: Chronic (5) Substance induced mood disorder Status: Chronic (6) Substance-induced anxiety disorder Status: Chronic (7) Opioid dependence Status: Chronic Qualifiers: Substance use status: uncomplicated Qualified Code(s): F11.20 - Opioid dependence, uncomplicated (8) Alcohol dependence Status: Chronic Qualifiers: Substance use status: uncomplicated Qualified Code(s): F10.20 - Alcohol dependence, uncomplicated - Follow-up Referral Minutes to complete discharge: 30 - AMA Did Patient Leave Against Medical Advice: No
[2019-03-02] MEDS: QUEtiapine FUMARATE 100 MG TABLET (FP) PO SCH (21:24)
[2019-03-02] MEDS: MELATONIN 5 MG TABLETS PO PRN (21:27)
[2019-03-02] MEDS: THIAMINE HCL 100 MG TABLET (FP) PO SCH (21:28)
[2019-03-03] MEDS: diphenhydrAMINE HCL 25 MG CAPSULE (FP) PO PRN (06:16)
[2019-03-03] MEDS: GABAPENTIN 400 MG CAPSULE (FP) PO SCH ×2 (06:16→14:02)
[2019-03-03] MEDS: AMOXICILLIN 500 MG CAPSULE (FP) PO SCH ×2 (06:16→14:02)
[2019-03-03] MEDS ORDERED: PT OWN MED DRAWER 7, Y5N ONE (09:27)
[2019-03-03 10:14] VITALS: BP 103/62; PULSE 77; TEMP 98
[2019-03-03] MEDS: PRENATAL VITAMINS W/ FOLIC ACID TABLET (FP) PO SCH (10:15)
[2019-03-03] MEDS: METHYL SALICYLATE/MENTHOL OINT 30 GM TUBE TP SCH (10:15)
[2019-03-03] MEDS: NICOTINE 14 MG/24 HOURS TOPICAL PATCH TD SCH (10:15)
[2019-03-03] MEDS: BUPRENORPHINE/NALOXONE 8 MG/2 MG FILM PACKET SL SCH (10:15)
[2019-03-03] MEDS: IBUPROFEN 400 MG TABLET (FP) PO PRN (10:16)
--- NOTE | 2019-03-03 11:09 | PN ---
[facility] Progress Note Note: Pt reports anxiety this morning stating "because I'm leaving today". Oob ambulating with steady gait. Reports n/v earlier today about 8:00 a.m. Denies abdominal pain or diarrhea. Reports last BM yesterday. Pt is scheduled to discharge today evening but states "my boyfriend lost his job and will be picking me up this morning instead". Vital Signs 03/03/19 03/03/19 03/03/19 03:30 07:02 10:14 Temperature 97.8 F 98 F Pulse Rate 74 77 Respiratory 16 18 16 Rate Blood Pressure 102/66 103/62 Alert o x 3, but anxious. nad oob ambulating cardiac;s1 s2 Lungs:cta,jordan Abdomen:soft,+bs,nt,nd A/P Anxiety Zofran odt sl as directed was given at 9:36 a.m with positive effect at this time. monitor pt for continued symptoms May d/c if stable/asymptomatic.
[2019-03-03] MEDS: MAG HYDROX/AL HYDROX/SIMETH 30 ML UNIT-DOSE CUP PO PRN (11:46)
[2019-03-03] MEDS: ACETAMINOPHEN 325 MG TABLET (FP) PO PRN (11:47)
== END 2019-03-03 14:05 | disposition home or self-care (01) | DRG 895 ==
LOC: YASAS 14:10 → Y3E 21:00
PROVIDERS: ADMIT Neuromusculoskeletal Medicine & OMM; ATTEND Neuromusculoskeletal Medicine & OMM
PROC: HZ42ZZZ Group Counseling for Substance Abuse Treatment, Cognitive-Behavioral (ICD-10-PCS; principal; 2019-02-07)
DX: F10.20 Alcohol dependence, uncomplicated (principal); F11.20 Opioid dependence, uncomplicated; F14.20 Cocaine dependence, uncomplicated; F19.280 Other psychoactive substance dependence with psychoactive substance-induced anxiety disorder; F19.282 Other psychoactive substance dependence with psychoactive substance-induced sleep disorder; F17.210 Nicotine dependence, cigarettes, uncomplicated; F19.24 Other psychoactive substance dependence with psychoactive substance-induced mood disorder; F32.9 Major depressive disorder, single episode, unspecified; J45.909 Unspecified asthma, uncomplicated; K02.9 Dental caries, unspecified; R63.8 Other symptoms and signs concerning food and fluid intake; Z91.013 Allergy to seafood
CPT/HCPCS: 36415; 80053; 81003; 81025; 85025; 86480; 86593; 86803; 93005; 93010; Q0162